=== PATIENT | male | born 1980 | race Caucasian/White ===

== ENCOUNTER 2017-09-18 23:26 | Emergency (ER) | payer OTHER ==
[~2017-09-18] VITALS: Ht 180.3 cm; Wt 86.6 kg
[2017-09-19 00:04] LABS: INFLUENZA A VIRAL ANTIGEN NEGATIVE; INFLUENZA B VIRAL ANTIGEN NEGATIVE
[2017-09-19 00:29] LABS: HEMATOCRIT 44.5 % (38.0-50.0); MCHC 34.6 G/DL (30.0-36.0); MCV 83.8 FL (86-99); MEAN PLAT.VOLUME 9.7 uM^3 (9.0-12.4); PLATELET COUNT 274 K/uL (156-360); RBC DIS.WIDTH-CV 12.6 % (11.8-14.6); RBC DIS.WIDTH-SD 37.9 % (39-53); RED BLOOD COUNT 5.31 M/uL (4.00-5.50); WHITE BLOOD COUNT 15.9 K/uL (4.1-10.2)
[2017-09-19 00:37] LABS: CHLORIDE 105 mEq/L (99-109); POTASSIUM 3.7 mEq/L (3.7-5.4); SODIUM 137 mEq/L (136-147)
[2017-09-19 00:40] LABS: GLUCOSE 117 mg/dL (70-99)
[2017-09-19 00:41] LABS: ANION GAP 10 MEQ/L (2-14)
[2017-09-19 00:42] LABS: TOTAL BILIRUBIN 0.7 mg/dL (0.0-1.0)
[2017-09-19 00:43] LABS: ALKALINE PHOSPHATASE 113 IU/L (3-129); GFR ESTIMATE (CALCULATED) > 59 mL/min/
[2017-09-19 00:44] LABS: UREA NITROGEN (BUN) 12 mg/dL (9-23)
[2017-09-19] MEDS ORDERED: ZOFRAN ODT4 MG PO (02:14)
[2017-09-19] MEDS ORDERED: ZITHROMAX Z-PA250 MG PO (02:14)
[2017-09-19 02:30] VITALS: BP 131/74
== END 2017-09-19 02:31 | disposition home or self-care (01) ==
LOC: EME 23:26
PROVIDERS: Physician Assistant
DX: R50.9 Fever, unspecified (principal); J06.9 Acute upper respiratory infection, unspecified; R11.2 Nausea with vomiting, unspecified; F17.200 Nicotine dependence, unspecified, uncomplicated
CPT/HCPCS: 71020; 80053; 85027; 87502; 87651 90; 99281; 99285; J1885; J2405; J7030